=== PATIENT | female | born 1970 | race Caucasian/White ===

== ENCOUNTER → 2016-10-03 | Outpatient (CLI) | payer SELFPAY ==
--- NOTE | 2016-10-03 15:22 | MAM ---
EXAM DESCRIPTION: MAMMO BREAST SCREENING BILATERAL CAD, images were reviewed with CAD technology, R2 computer-aided detection. CLINICAL HISTORY: [facility]. COMPARISON: 2009. FINDINGS: Routine views are obtained. Glandular tissue is near completely fatty involuted. No dominant mass, architectural distortion or clustered microcalcification.. IMPRESSION: Benign exam. BIRAD CATEGORY: 2 BENIGN RECOMMENDATIONS: FOLLOW-UP: Routine screening mammogram in one year. According to the [employer], yearly mammograms are recommended starting at age 40 and continuing as long as a woman is in good health. Any breast change noted on a breast self-exam should be reported promptly to the patient's healthcare provider. Breast MRI is recommended for women with an approximately 20-25% or greater lifetime risk of breast cancer, including women with a strong family history of breast or ovarian cancer and women who have been treated for Hodgkin's disease. Electronically signed by: Nayeli Infante 10/03/2016 15:21
== END | disposition home or self-care (01) ==
LOC: MAMMO 10:58
PROVIDERS: ATTEND Obstetrics & Gynecology
DX: Z12.31 Encounter for screening mammogram for malignant neoplasm of breast (principal)

== ENCOUNTER 2017-01-15 11:07 | Emergency (ER) | payer SELFPAY ==
[2017-01-15] MEDS: ALUMINUM & MAGNESIUM HYDROXIDE 30 ML UD PO ONE (11:26)
[2017-01-15 11:29] VITALS: TEMP 97.7
[2017-01-15] MEDS: HYDROmorphone HCL INJ 2 MG/ML VIAL IM ONE (11:47)
--- NOTE | 2017-01-15 11:48 | RAD ---
EXAM DESCRIPTION: Abdomen Series CLINICAL HISTORY: 46 years, Female, epigastric pain, recurrent COMPARISON: None. FINDINGS: A frontal chest radiograph along with upright and supine radiograph the abdomen and pelvis were performed. The lungs are well expanded and clear. The costophrenic sulci are sharp. No pneumoperitoneum is present. There is no gaseous distention of the bowel. Bowel gas is patchy in appearance and several air-fluid levels are noted. Multiple calcifications project over the mid abdomen, LEFT lower quadrant and pelvis and likely resides within the colon. Surgical clips in the RIGHT upper quadrant suggest previous scoliosis ectomy. Old RIGHT L5 transverse process tip fracture. IMPRESSION: Nonspecific bowel gas pattern without evidence of rani obstruction. CT imaging could be obtained for further evaluation if clinically indicated. No acute cardiopulmonary disease. Electronically signed by: Magdalena Gonzalez MD 01/15/2017 11:49 AM CDT
[2017-01-15] MEDS: SODIUM CHLORIDE 0.9% 1000ML 1,000 ML IVS ONE (11:59)
[2017-01-15] MEDS: ONDANSETRON INJ 4 MG/2 ML VIAL IV ONE (12:06)
[2017-01-15] MEDS: KETOROLAC TROMETHAMINE INJ 30 MG/ML VIAL IV ONE (12:06)
[2017-01-15] MEDS ORDERED: SODIUM CHLORIDE 0.9% 10 ML VIAL ONE (12:42)
[2017-01-15] MEDS: SUCRALFATE 1 GM/10 ML 1 GM UD PO ONE (12:48)
[2017-01-15] MEDS: PANTOPRAZOLE SODIUM IV 40 MG VIAL IV ONE (12:53)
[2017-01-15] MEDS: PROCHLORPERAZINE INJ 10 MG/2 ML VIAL IV ONE (13:38)
--- NOTE | 2017-01-15 15:25 | CT ---
EXAM DESCRIPTION: Abdomen/Pelvis w/Contrast CLINICAL HISTORY: 46 years Female, epigastric pain, elevated amylase/lipase COMPARISON: Abdominal radiographs from today. TECHNIQUE: 5 mm axial images through the abdomen and pelvis were performed after the administration of intravenous and oral contrast. Coronal and sagittal reconstructions were obtained. This exam was performed according to our departmental dose-optimization program which includes use of Automated Exposure Control, adjustment of the mA and/or kV according to patient size and/or use of iterative reconstruction technique. FINDINGS: Aside from atelectasis, the lung bases are clear. No pericardial or pleural effusion. Periportal edema is noted. The IVC is well-distended. A 2.1 cm focus of hypoattenuation involves the caudal LEFT lobe of the liver (axial image 27). Delayed images are not available. Postcontrast images of the spleen, kidneys (small upper pole LEFT renal calculus, no hydronephrosis), adrenal glands and pancreas are unremarkable. There has been a previous cholecystectomy. No biliary ductal dilatation. No ascites or small bowel obstruction. Noninflamed appendix. No bowel wall thickening or pericolonic fat stranding. Oral contrast remains within the stomach and has not yet passed into loops of small bowel. Dominant LEFT ovarian follicles measure up to 2 cm in diameter. No free fluid in the pelvis. No bladder calculus. IMPRESSION: No CT evidence of acute pancreatitis. No evidence of biliary obstruction. 2.1 cm focus of hypoattenuation in the caudal LEFT lobe of the liver. This could represent a perfusion phenomenon but delayed images are not available for further evaluation. Recommend nonemergent MRI versus nonemergent three-phase liver mass protocol CT if clinically indicated. Periportal edema is not unusual in younger patients that are well hydrated. Nonobstructing small LEFT renal calculus. Electronically signed by: Magdalena Gonzalez MD 01/15/2017 3:25 PM CDT Workstation: [employer]
--- NOTE | 2017-01-15 15:40 | ED.PDOC ---
History of Present Illness - General Chief Complaint: Abdominal Pain Time Seen by Provider: 01/15/17 11:18 Source: patient, family Exam Limitations: no limitations - History of Present Illness Initial Comments: The patient is a 46-year-old female presenting secondary to acute onset epigastric pain severe in nature for the last half hour. Pain is cramping and burning. Mild nausea. She does get similar pain most morning But not this severe. No fever. No blood in the stool. She has been passing gas and having bowel movements. She does have a clinical history consistent with some esophageal spasm. She is not currently taking any acid reducing medications Timing/Duration: 1/2 hour Severity: severe Improving Factors: nothing Worsening Factors: nothing Associated Symptoms: loss of appetite, malaise, nausea/vomiting Allergies/Adverse Reactions: Allergies NO KNOWN ALLERGY Allergy (Verified 01/15/17 11:40) Home Medications: Ambulatory Orders Esomeprazole Magnesium [Nexium] 40 mg PO BID #60 cap 01/15/17 Ondansetron [Zofran Odt] 4 mg PO Q4H PRN #10 tab 01/15/17 Sucralfate Tab [Carafate Tab] 1 gm PO QID #120 tab 01/15/17 Review of Systems - Review of Systems Constitutional: States: no symptoms reported EENTM: States: no symptoms reported Respiratory: States: no symptoms reported Cardiology: States: no symptoms reported Gastrointestinal/Abdominal: States: see HPI Genitourinary: States: see HPI Musculoskeletal: States: no symptoms reported Skin: States: no symptoms reported Neurological: States: no symptoms reported Endocrine: States: no symptoms reported All other Systems: No Change from Baseline Past Medical History (General) - Patient Medical History Hx Stroke: No Hx Asthma: No Hx Cardiac Disorders: No Hx Hypertension: No Hx Diabetes: No Hx Gastroesophageal Reflux: Yes Hx Renal Disease: No - Female History Patient is a Female of Child Bearing Age (10 -59 yrs old): Yes Patient : No Family Medical History - Family History Mother Family History: Unknown Physical Exam - Physical Exam General Appearance: Alert, Obvious distress Eye Exam: bilateral normal Ears, Nose, Throat: normal ENT inspection, normal pharynx Neck: non-tender, full range of motion, supple Respiratory: chest non-tender, lungs clear, normal breath sounds, no respiratory distress, no accessory muscle use Cardiovascular/Chest: normal peripheral pulses, regular rate, rhythm, no edema Peripheral Pulses: radial,right: 2+, radial,left: 2+, dorsalis pedis,right: 2+, dorsalis pedis,left: 2+, posterior tibialis,right: 2+, posterior tibialis,left: 2+ Gastrointestinal/Abdominal: no pulsatile mass, other - epigastric discomfort to palpation is present. No definite rebound or peritoneal sign. No palpable enlargement of the abdominal aorta Rectal Exam: deferred Back Exam: normal inspection, no CVA tenderness, no vertebral tenderness Extremity: normal range of motion, non-tender, normal inspection, no pedal edema , normal capillary refill Neurologic: alert, normal mood/affect, oriented x 3 Skin Exam: normal color Comments: Vital Signs - 24 hr 01/15/17 01/15/17 01/15/17 11:21 12:25 13:25 Temperature 97.7 F Pulse Rate [ 73 64 53 L left brachial] Respiratory 20 20 16 Rate Blood Pressure 141/76 111/67 166/69 [left brachial] O2 Sat by Pulse 100 99 97 Oximetry 01/15/17 14:40 Temperature Pulse Rate [ 50 L left brachial] Respiratory 14 Rate Blood Pressure 113/72 [left brachial] O2 Sat by Pulse 96 Oximetry Progress - Progress Progress: 01/15/17 15:43 the patient is a 46-year-old female presenting secondary to severe epigastric Pain. This is most consistent with gastritis and a history of some esophageal spasm. The patient will be placed on Carafate 1 g 4 times a day for one month and Nexium 40 milligrams twice daily for 1 month. after that she can take Pepcid 20 mg daily. She needs to keep liquid Maalox with her for any acute flares. Additionally she will be written for Zofran for as needed use. For the next few days she needs to maintain a liquid diet. she needs to avoid caffeine, nicotine, hot or spicy foods. ER warnings were given for any acute worsening. In the next few months, she needs to obtain an MRI of the liver for reevaluation of a spot seen on the CT scan. the patient has improved clinically. She needs to follow up with her primary care doctor next week. - Results/Orders Results/Orders: Laboratory Tests 01/15/17 01/15/17 01/15/17 11:58 11:58 11:58 WBC 5.7 RBC 4.52 Hgb 14.1 Hct 42.3 MCV 93.6 MCH 31.2 H MCHC 33.3 RDW 14.1 Plt Count 243 MPV 8.0 Absolute Neuts (auto) 2.10 Absolute Lymphs (auto) 2.40 Absolute Monos (auto) 0.40 Absolute Eos (auto) 0.70 H Absolute Basos (auto) 0.10 Neutrophils % 37.5 L Lymphocytes % 41.5 Monocytes % 7.5 Eosinophils % 12.3 H Basophils % 1.2 PT 10.9 INR 0.960 PTT (SP) 28.0 Sodium 139 Potassium 4.1 Chloride 105 Carbon Dioxide 27 Anion Gap 11.1 L BUN 18 Creatinine 0.85 BUN/Creatinine Ratio 21.2 H Random Glucose 123 H Serum Osmolality 280.8 Calcium 9.2 Total Bilirubin 0.8 AST 64 H ALT 35 Alkaline Phosphatase 77 Creatine Kinase 187 H CK-MB (CK-2) 4.9 H* CK-MB (CK-2) % 2.62 Troponin I < 0.02 Serum Total Protein 7.3 Albumin 3.9 Globulin 3.4 Albumin/Globulin Ratio 1.1 Amylase 534 H* Lipase 926 H Urine Color Urine Appearance Urine pH Ur Specific [place] Urine Protein Urine Glucose (UA) Urine Ketones Urine Blood Urine Nitrite Urine Bilirubin Urine Urobilinogen Ur Leukocyte Esterase Urine RBC Urine WBC Ur Epithelial Cells Amorphous Sediment Urine Bacteria Urine HCG, Qual 01/15/17 01/15/17 12:28 12:37 WBC RBC Hgb Hct MCV MCH MCHC RDW Plt Count MPV Absolute Neuts (auto) Absolute Lymphs (auto) Absolute Monos (auto) Absolute Eos (auto) Absolute Basos (auto) Neutrophils % Lymphocytes % Monocytes % Eosinophils % Basophils % PT INR PTT (SP) Sodium Potassium Chloride Carbon Dioxide Anion Gap BUN Creatinine BUN/Creatinine Ratio Random Glucose Serum Osmolality Calcium Total Bilirubin AST ALT Alkaline Phosphatase Creatine Kinase CK-MB (CK-2) CK-MB (CK-2) % Troponin I Serum Total Protein Albumin Globulin Albumin/Globulin Ratio Amylase Lipase Urine Color Yellow Urine Appearance Cloudy Urine pH >= 9.0 H* Ur Specific [place] 1.015 Urine Protein 30 Urine Glucose (UA) Negative Urine Ketones 15 H Urine Blood Negative Urine Nitrite Negative Urine Bilirubin Negative Urine Urobilinogen 4.0 H Ur Leukocyte Esterase Negative Urine RBC 0 Urine WBC 0 Ur Epithelial Cells 3-5 Amorphous Sediment 4+ Urine Bacteria 0 Urine HCG, Qual Negative CT scan of the abdomen and pelvis showed no evidence of any bowel perforation or obstruction. No evidence of bowel ischemia. no evidence of pancreatitis. She does have a 1 inch spot on her liver that needs to be followed up with additional imaging in the near future. Acute abdominal series is nonspecific. No evidence of free air. No evidence of constipation. Departure - Departure Clinical Impression: Gastritis Disposition: Discharge to Home or Self Care Condition: Fair Departure Forms: ED Discharge - Pt. Copy, Patient Portal Self Enrollment Instructions: DI for Gastritis, Achalasia Diet: bland diet Activity: increase activity as tolerated Referrals: Jhon Fallon MD [Primary Care Provider] - 1-2 Weeks Prescriptions: Esomeprazole Magnesium [Nexium] 40 mg PO BID #60 cap Ondansetron [Zofran Odt] 4 mg PO Q4H PRN #10 tab PRN Reason: Vomiting Sucralfate Tab [Carafate Tab] 1 gm PO QID #120 tab Home Medications: Ambulatory Orders Esomeprazole Magnesium [Nexium] 40 mg PO BID #60 cap 01/15/17 Ondansetron [Zofran Odt] 4 mg PO Q4H PRN #10 tab 01/15/17 Sucralfate Tab [Carafate Tab] 1 gm PO QID #120 tab 01/15/17 Additional Instructions: the patient is a 46-year-old female presenting secondary to severe epigastric Pain. This is most consistent with gastritis and a history of some esophageal spasm. The patient will be placed on Carafate 1 g 4 times a day for one month and Nexium 40 milligrams twice daily for 1 month. after that she can take Pepcid 20 mg daily. She needs to keep liquid Maalox with her for any acute flares. Additionally she will be written for Zofran for as needed use. For the next few days she needs to maintain a liquid diet. she needs to avoid caffeine, nicotine, hot or spicy foods. ER warnings were given for any acute worsening. In the next few months, she needs to obtain an MRI of the liver for reevaluation of a spot seen on the CT scan. the patient has improved clinically. She needs to follow up with her primary care doctor next week.
[2017-01-15 16:21] VITALS: BP 111/71; O2SAT 97
== END 2017-01-15 16:10 | disposition home or self-care (01) ==
LOC: ER 11:07
DX: K29.70 Gastritis, unspecified, without bleeding (principal); K21.9 Gastro-esophageal reflux disease without esophagitis
CPT/HCPCS: 36415; 74020; 74177; 80053; 81001; 81025; 82150; 82550; 82553; 83690; 84484; 85025; 85610; 85730; J0780; J1170; J1885; J2405; J7030

== ENCOUNTER → 2020-06-29 | Outpatient (CLI) | payer SELFPAY ==
--- NOTE | 2020-07-01 15:44 | MAM ---
EXAM DESCRIPTION: 3D Screening BILATERAL : Digital Mammography. CLINICAL HISTORY: 49 years Female SCREENING . No complaints. No personal or family history of breast cancer. Menarche age 10. Childbirth age 25. Premenopausal. No HRT. Lifetime risk of developing breast cancer (Tyrer-Cuzick model)(%): 9.7. COMPARISON: Bilateral screening digital breast 2-D imaging. September 2016 and September 2012. TECHNIQUE: Bilateral CC and MLO projection full-field images, digital tomosynthesis mammographic technique. Bilateral digital 2-D full-field MLO images. CAD available for 2-D images. FINDINGS: The breast parenchymal density pattern is: Scattered areas of fibroglandular density. No skin thickening or nipple retraction. Solitary microcalcifications. Intramammary lymph nodes. No new focal, stellate mass or density, focal asymmetry , and no suspicious microcalcifications bilaterally. Stable mammograms compared to prior study. Taking into account, differences in mammographic technique. IMPRESSION: Benign exam. BIRAD CATEGORY: 2 BENIGN FINDINGS. RECOMMENDATIONS: FOLLOW UP: Routine digital bilateral mammographic screening, one year interval from June 2020. Written communication explaining the IMPRESSION and follow-up, will be mailed to the patient and referring health care provider. According to the [employer], yearly mammograms are recommended starting at age 40 and continuing as long as a woman is in good health. Any breast change noted on a breast self-exam should be reported promptly to the patient's healthcare provider. Breast MRI is recommended for women with an approximately 20-25% or greater lifetime risk of breast cancer, including women with a strong family history of breast or ovarian cancer and women who have been treated for Hodgkin's disease. A negative mammographic report should not delay tissue diagnosis in patients with significant clinical history or physical findings. Extremely dense breast tissue limits the sensitivity of digital mammography. Electronically signed by: Ta Valladares MD 07/01/2020 3:43 PM [employer]
== END ==
LOC: MAMMO 12:53
PROVIDERS: ATTEND Obstetrics & Gynecology
DX: Z12.31 Encounter for screening mammogram for malignant neoplasm of breast (principal)